=== PATIENT | male | born 1965 | race Hispanic/Latino ===

== ENCOUNTER 2019-03-12 00:12 | Emergency (ER) | payer BC ==
[2019-03-12 00:23] VITALS: BMI 25.7
[2019-03-12 00:24] VITALS: RESP 18
[2019-03-12 00:41] VITALS: TEMP 99.2
[2019-03-12] MEDS ORDERED: Sodium Chloride 0.9% 1,000 ML IV STA (01:33)
[2019-03-12] MEDS ORDERED: Morphine 4 mg/ml ISec IVP STA (01:33)
--- NOTE | 2019-03-12 01:43 | ED PDOC ---
Arrival/HPI - General Chief Complaint: Abdominal Pain Time Seen by Provider: 03/12/19 01:23 Historian: Patient - History of Present Illness Narrative History of Present Illness (Text): 03/12/19 01:44 A 54 year old male presents to the emergency department complaining of intermittent epigastric pain for 2 weeks. Patient reports at 17:00, pain worsened and had several episodes of vomiting. He notes when he vomited, the pain went down in severity. Patient denies any fever, diarrhea, or any other complaints at this time. Denies any sick contacts or recent travel. Also, patient mentions he does drink a lot of coffee daily. Denies daily EtOH consumption. Time/Duration: > month (2 weeks) Past Medical History - Provider Review Nursing Documentation Reviewed: Yes - Psychiatric Hx Substance Use: No Family/Social History - Physician Review Nursing Documentation Reviewed: Yes Family/Social History: No Known Family HX Smoking Status: Never Smoked Hx Alcohol Use: Yes Frequency of alcohol use: Socially Hx Substance Use: No Allergies/Home Meds Allergies/Adverse Reactions: Allergies No Known Allergies Allergy (Verified 03/12/19 00:26) Review of Systems - Physician Review All systems were reviewed & negative as marked: Yes - Review of Systems Constitutional: absent: Fevers Gastrointestinal: Abdominal Pain (epigastric region), Vomiting (several episodes). absent: Diarrhea Physical Exam Vital Signs Reviewed: Yes Vital Signs Temp Pulse Resp BP Pulse Ox 03/12/19 00:41 99.2 F 03/12/19 00:23 104 H 18 144/94 H 97 Blood Pressure: Normal Pulse: Regular Respiratory Rate: Normal Appearance: Positive for: Well-Appearing, Non-Toxic, Comfortable Pain Distress: None Mental Status: Positive for: Alert and Oriented X 3 - Systems Exam Head: Present: Atraumatic, Normocephalic Pupils: Present: PERRL Extroacular Muscles: Present: EOMI Conjunctiva: Present: Normal Mouth: Present: Moist Mucous Membranes Neck: Present: Normal Range of Motion Respiratory/Chest: Present: Clear to Auscultation, Good Air Exchange. No: Respiratory Distress, Accessory Muscle Use Cardiovascular: Present: Regular Rate and Rhythm, Normal S1, S2. No: Murmurs Abdomen: No: Tenderness, Distention, Peritoneal Signs, Rebound, Guarding Back: Present: Normal Inspection Upper Extremity: Present: Normal Inspection. No: Cyanosis, Edema Lower Extremity: Present: Normal Inspection. No: Edema Neurological: Present: GCS=15, CN II-XII Intact, Speech Normal Skin: Present: Warm, Dry, Normal Color. No: Rashes Psychiatric: Present: Alert, Oriented x 3, Normal Insight, Normal Concentration Medical Decision Making ED Course and Treatment: 03/12/19 01:46 Impression: 54 year old male with intermittent epigastric pain and several episodes of vomiting. Plan: -- Abd/Pelvis CT -- Labs -- Morphine -- IV Fluids -- Reassess and disposition Progress Notes: Patient given morphine ivp for pain. Given 1L NS bolus. On re-eval, patient states that he feels better. 03/12/2019 03:01 Abd/Pelvis CT IMPRESSION: Uncomplicated enteritis. Dictator: Landon Arnold MD Results discussed with patient. Given low grade fever and leukocytosis, will treat with abx. Rx written for cipro/flagyl. Patient requesting something more for epigastric pain. GI cocktail given. Patient reported no improvement. Pepcid also ordered, however patient declined. Discussed admission for intractable pain, however patient declined, does not want to stay. Advised outpatient followup with PMD as soon as possible. Return to the ED for any new or worsening symptoms. - RAD Interpretation Radiology Orders: 03/12/19 01:33 ABD & PELVIS IV CONTRAST ONLY [CT] Stat - Medication Orders Current Medication Orders: Sodium Chloride (Sodium Chloride 0.9%) 1,000 mls @ 999 mls/hr IV .Q1H1M STA Stop: 03/12/19 02:33 Discontinued Medications Morphine Sulfate (Morphine) 4 mg IVP STAT STA Stop: 03/12/19 01:34 - Scribe Statement The provider has reviewed the documentation as recorded by the Hailey Tolentino Provider Scribe Attestation: All medical record entries made by the Scribtod were at my direction and personally dictated by me. I have reviewed the chart and agree that the record accurately reflects my personal performance of the history, physical exam, medical decision making, and the department course for this patient. I have also personally directed, reviewed, and agree with the discharge instructions and disposition. Disposition/Present on Arrival - Present on Arrival Any Indicators Present on Arrival: No History of DVT/PE: No History of Uncontrolled Diabetes: No Urinary Catheter: No History of Decub. Ulcer: No History Surgical Site Infection Following: None - Disposition Have Diagnosis and Disposition been Completed?: Yes Diagnosis: Enteritis Disposition: HOME/ ROUTINE Disposition Time: 03:34 Condition: STABLE Discharge Instructions (ExitCare): Viral Gastroenteritis, Adult (DC) Additional Instructions: ALIA CARROLL, thank you for letting us take care of you today. Your provider was Cindy Benjamin MD and you were treated for ABD PAIN. The emergency medical care you received today was directed at your acute symptoms. If you were prescribed any medication, please fill it and take as directed. It may take several days for your symptoms to resolve. Return to the Emergency Department if your symptoms worsen, do not improve, or if you have any other problems. Please contact your doctor or call one of the physicians/clinics you have been referred to that are listed on the Patient Visit Information form that is included in your discharge packet. Bring any paperwork you were given at discharge with you along with any medications you are taking to your follow up visit. Our treatment cannot replace ongoing medical care by a primary care provider outside of the emergency department. Thank you for allowing the [facility] team to be part of your care today. If you had an X-Ray or CT scan: A Radiologist will review the ED reading if any change in treatment is needed we will contact you. If you had a blood, urine, or wound culture: It will take several days for the results, if any change in treatment is needed we will contact you. If you had an STI test: It will take 48 hours for the results. Please call after 1 week if you have not heard back. Prescriptions: Levofloxacin [Levaquin] 500 mg PO DAILY #7 tablet Metronidazole [Flagyl] 500 mg PO BID #21 tablet Forms: [employer] (Norwegian)
[2019-03-12 02:00] LABS: BASO # 0.01 K/mm3 (0.0-2.0); BASO % 0.1 % (0.0-3.0); EOS # 0.1 (0.0-0.7); EOS % 0.4 % (1.5-5.0); HEMOGLOBIN 16.5 g/dL (14.0-18.0); LYMPH # 1.2 (1.2-3.4); MEAN CELL VOLUME 88.8 fl (80.0-105.0); MEAN CORPUSCULAR HEMOGLOBIN 30.2 pg (25.0-35.0); MEAN PLATELET VOLUME 11.3 fl (7.0-11.0); MONO # 1.1 (0.1-0.6); MONO % 6.2 % (1.0-6.0); RBC 5.47 10^6/uL (3.5-6.1); RED CELL DISTRIBUTION WIDTH 12.4 % (11.5-14.5); WHITE BLOOD COUNT 17.4 10^3/uL (4.5-11.0)
[2019-03-12 02:11] LABS: ALB/GLOB RATIO 1.3 (1.1-1.8); ALBUMIN 4.9 g/dL (3.0-4.8); ALT/SGPT 26 U/L (7-56); AST/SGOT 36 U/L (17-59); BLOOD UREA NITROGEN 17 mg/dL (7-21); CALCIUM 9.6 mg/dL (8.4-10.5); GFR NON-AFRICAN AMERICAN > 60; LIPASE 108 U/L (23-300)
[2019-03-12] MEDS ORDERED: Iohexol 350 MG/100 ML VIAL ONE (02:22)
[2019-03-12] MEDS ORDERED: Alum-Mag Hydrox-Simethicone Susp (30 mL) PO STA (03:33)
[2019-03-12 05:00] VITALS: BP 135/78; PULSE 85; O2SAT 100
--- NOTE | 2019-03-12 09:33 | CARD ---
APPROVED REPORT Date of service: 03/12/2019 EKG Measurement Heart [id number] <Conclusion> Normal sinus rhythm Leftward axis Borderline ECG
--- NOTE | 2019-03-12 10:40 | CT ---
Date of service: 03/12/2019 PROCEDURE: CT Abdomen and Pelvis with contrast HISTORY: epigastric pain COMPARISON: None available. TECHNIQUE: Contrast dose: 100 mL Omnipaque 350 IV Radiation dose: Total exam DLP = 645.08 mGy-cm. This CT exam was performed using one or more of the following dose reduction techniques: Automated exposure control, adjustment of the mA and/or kV according to patient size, and/or use of iterative reconstruction technique. FINDINGS: LOWER THORAX: Mild basilar atelectasis. No visible pleural effusion or pneumothorax. Small hiatal hernia/distal esophageal wall thickening. LIVER: Hypoattenuation of the liver compatible with hepatic steatosis. GALLBLADDER AND BILE DUCTS: Unremarkable. PANCREAS: Unremarkable. SPLEEN: Unremarkable. ADRENALS: Unremarkable. KIDNEYS AND URETERS: The kidneys enhance symmetrically. No hydronephrosis or obstructing calculus identified. VASCULATURE: No aortic aneurysm. No atherosclerotic calcification or mural plaque present. BOWEL: Stomach is nondistended. Lack of oral contrast limits evaluation for bowel pathology. Bowel loops appear within normal limits of caliber without evidence of obstruction. Diverticulosis without CT evidence of acute diverticulitis. Wall thickening of the sigmoid colon; correlate clinically for possibility of colitis. Nondistended fluid-filled small bowel may be related to enteritis. APPENDIX: The appendix appears within normal limits of caliber. No secondary signs of acute appendicitis. PERITONEUM: No significant free fluid. No definite free air. LYMPH NODES: No bulky adenopathy identified. BLADDER: Mild wall thickening of the urinary bladder. REPRODUCTIVE: Unremarkable. BONES: No acute osseous abnormality is detected. OTHER FINDINGS: None. IMPRESSION: Diverticulosis without CT evidence of acute diverticulitis. Wall thickening of the sigmoid colon; correlate clinically for possibility of colitis. Nondistended fluid-filled small bowel may be related to enteritis. Correlate clinically. Additional findings as above. Preliminary impression was provided by [facility]. Study marked for PA review.
== END 2019-03-12 04:45 | disposition home or self-care (01) ==
LOC: ED 00:12
DX: K52.9 Noninfective gastroenteritis and colitis, unspecified (principal)
CPT/HCPCS: 74177; 80053; 83690; 83735; 84100; 85025; 93005; 96374; 99283; J2270; J2405; J7030; Q9967